=== PATIENT | female | born 1945 | race Caucasian/White ===

== ENCOUNTER → 2017-11-04 | Day surgery (SDC) | payer BC, OTHER ==
[2017-11-03 13:09] VITALS: BMI 28.0
[~2017-11-04] VITALS: Ht 157.5 cm; Wt 70.5 kg
[~2017-11-04] MED LIST: ATROPINE SULFATE 0.1 MG/ML 5ML SYR IV PRN; BELLADONNA/OPIUM SUPP 60 MG SUPP PR ONE; CALC600T9 PO; CEFAZOLIN 2000MG IV PUSH 10 ML IV SCH; CETI10TA84 PO; CHECK SCOPOLAMINE PATCH PLACEMENT SCH; DEXAMETHASONE SOD INJ 4 MG/ML VIAL ONE; DiphenhydrAMINE HCL 50 MG/ML VIAL ONE; EpHEDrine SULFATE 50MG/5ML SYR ONE; FENTANYL CITRATE INJ 50 MCG/1 ML 2 ML VIAL IV PRN; FENTANYL CITRATE INJ 50 MCG/1 ML 2 ML VIAL ONE; GLYCOPYRROLATE INJ 0.2 MG/ML VIAL ONE; HYDR-3419 PO; LABETALOL HCL IV 5 MG/ML 20ML IV PRN; LACTATED RINGER'S 1000ML 1,000 ML IV SCH; LIDOCAINE HCL 2% 2 ML VIAL (20MG/ML) ONE; MIDAZOLAM HCL 1 MG/ML 2ML VIAL ONE; NXM/40 PO; ONDANSETRON INJ 2 MG/ML 2 ML VIAL IV PRN; ONDANSETRON INJ 2 MG/ML 2 ML VIAL ONE; PATIENT'S HEIGHT AND/OR WEIGHT NEEDED SCH; PHEN-775 PO; PHENYLEPHRINE 100MCG/ML 5ML SYR ONE; PROPOFOL IV EMULSION 10 MG/ML 20 ML VIAL IV ONE; SCOPOLAMINE 1.5 MG TDSY TD ONE; SCOPOLAMINE 1.5 MG TDSY TD SCH; ZOLE5INJ INJ
[2017-11-04 05:46] VITALS: BP 181/77; PULSE 55; TEMP 36.5; O2SAT 98; Ht 157.5 cm; Wt 70.5 kg
--- NOTE | 2017-11-04 06:47 | History & Physical Bridge Note ---
H&P Re-Evaluation Bridge Note: I have examined the patient, reviewed the History & Physical and in the interval since the performance of the History & Physical I have noted the following changes of clinical significance: No changes noted
--- NOTE | 2017-11-04 08:03 | [facility] Operative Report ---
Operative Report Operative Date Nov 04, 2017. Pre-Operative Diagnosis Red Lesions in bladder, hematuria Post-Operative Diagnosis Red lesions in bladder, hematuria Procedure(s) Performed Cystoscopy, Bladder Biopsy Surgeon Dr. Colón Nurses Medical Assistants Phlebotomists Surgeon(s) none Estimated Blood Loss 0 cc Findings red lesions scattered throughout bladder Specimens A: Red lesions, bladder Drains none Anesthesia LMA Complication(s) None Disposition Recovery Room / PACU Indications workup of hematuria and irritative urinary symptoms showed suspicious red lesions in the bladder on office cysto. we plan biopsy for tissue diagnosis. Description of Procedure Patient was given general LMA anesthesia and placed in lithotomy position. Her genitals were prepped and draped in sterile fashion. Time out held with team. I placed a 22 fr rigid cystoscope to bladder. The urethra is unremarkable. The UOs are in normal location. There are about 10 red lesions in the bladder ranging in size from 3mm to 20mm in size. I used cold cups forceps to biopsy about 6 of them and fulgurated all of them. Hemostasis is excellent. After biopsy and fulguration there is an intense creeping red halo around each treatment site, much more pronounced than typical. I rinsed bladder several times. I left bladder empty and concluded case. I placed a belladonna and opium suppository for post-op pain. She transferred to recovery under my escort, in stable condition. Plan: Home today Pyridium for dysuria x 3 days consider atarax if this is a inflammatory allergic type reaction on path ASA 2 clean contaminated case ancef antibiotic operations support specialist I attest to the content of the Intraoperative Record and any orders documented therein. Any exceptions are noted below.
--- NOTE | 2017-11-04 08:08 | Discharge Instructions ---
Discharge Instructions Date of Service Nov 04, 2017. Admission Reason for Admission: Hematuria, red lesions in bladder Discharge Discharge Diagnosis / Problem: hematuria, red lesions bladder Discharge Goals Goal(s): Improve disease control, Learn about illness Activity Recommendations Activity Limitations: resume your previous activity Lifting Limitations: none Exercise/Sports Limitations: none, as tolerated May Resume Sexual Activity: when tolerated Shower/Bathe: no limitations Driving or Machine Use: resume 1 day after discharge will call with path report . Instructions / Follow-Up Instructions / Follow-Up will call with path report Current Hospital Diet Patient's current hospital diet: Discharge Diet Recommended Diet: Regular Diet Fluid Restriction: None Procedures Procedures Performed: Cystoscopy, Bladder Biopsy Pending Studies Studies pending at discharge: yes List of pending studies: bladder biopsy Medical Emergencies . Who to Call and When: Medical Emergencies: If at any time you feel your situation is an emergency, please call 911 immediately. . Non-Emergent Contact Non-Emergency issues call your: Urologist ([phone]) Call Non-Emergent contact if: temperature is above 100.5, your pain is not controlled . . "Provider Documentation" section prepared by Fara Colón. . VTE Core Measure Inpt VTE Proph given/why not?: SCD's
--- NOTE | 2017-11-04 09:58 | Anesthesiology Progress Note ---
Anesthesia Progress Note Date of Service Nov 04, 2017. Progress Notes On arrival to PACU, patient was found to be hypertensive and to have a pulse in the 110's and 120's and was in atrial fibrillation. One dose of labetalol improved both and a 12 lead ecg was done to confirm the rhythm. She has no known cardiac history. Spoke to Dr Rahman from cardiology and he will be by to see her. While explaining this to the patient she spontaneously converted to a sinus rhythm. Dr Rahman will still be by to see her - vitals have been stable and she feels fine.
--- NOTE | 2017-11-04 10:55 | Cardiology Consultation ---
Cardiology Consultation Date of Service Nov 04, 2017. Cardiology Consultation History: This is a 72-year-old female who underwent a cystoscopy today with bladder biopsy. At the end of the procedure she developed some atrial fibrillation and was given labetalol in the PACU. The patient soon after converted spontaneously to normal sinus rhythm. She is hemodynamically stable and was unaware of the atrial arrhythmia. She has no significant cardiac history. No prior history of arrhythmias. Reviewing her chart record, her only significant past history was that of breast cancer. She is currently under the effects of postanesthesia with voices no complaints. Allergies: Latex Reported Home Medications Medications Dose Route/Sig Max Daily Dose Days Date Category Dose Instructions Pyridium (Phenazopyridine Hcl) 200 Mg Tab 200 Mg PO TID PRN 11/04/17 Rx Reclast (Zoledronic Acid) 5 Mg/100 Ml Inj 1 Dose INJ Q1YR 11/03/17 Reported DUE 01/2018 Zyrtec (Cetirizine HCl) 10 Mg Tab 10 Mg PO PRN 11/03/17 Reported Calcium + D (Calcium Carbonate-Vitamin D) 1 Tab Tab 1 Tab PO BID 11/03/17 Reported Vicodin (5MG/300MG) (Hydrocodon/Acetaminophen 5MG/300MG) 1 Tab Tab 1 Tab PO Q6H PRN 11/03/17 Reported Nexium (Esomeprazole Magnesium) 40 Mg Capcr 40 Mg PO QAM 11/10/07 Reported Past medical history: The patient has no prior history of heart disease. As stated above she has been treated for breast cancer. Social history: She is reformed cigarette smoker. She is and lives with her . Family medical history: Noncontributory General: The patient denies weight change, night sweats, fever, chills. Head: The patient denies headache and prior head trauma. Cardiovascular: The patient denies chest pain or chest discomfort, dyspnea on exertion, palpitations, PND, orthopnea, edema, spontaneous shortness of breath, syncope and near syncope. Pulmonary: The patient denies cough, wheeze, pleurisy, hemoptysis, sputum, and excessive snoring. Gastrointestinal: The patient denies nausea, vomiting, diarrhea, constipation, bloating, hematemesis, hematochezia, and abdominal pain. Skin: The patient denies diaphoresis and rash. Musculoskeletal: The patient denies joint pain, joint swelling, myalgia, back pain, neck pain and prior injuries. Neurological: The patient denies prior stroke and seizures Vital Signs Past 12 Hours Date Time Temp Pulse Resp B/P (MAP) Pulse Ox O2 Delivery O2 Flow Rate FiO2 11/04/17 10:15 86 14 148/81 95 Room Air 11/04/17 10:00 85 15 158/87 95 Room Air 11/04/17 09:45 36.1 95 18 147/99 94 Room Air 11/04/17 09:30 87 18 163/91 93 Room Air 11/04/17 09:20 87 18 161/98 92 Room Air 11/04/17 09:10 89 16 163/99 95 Room Air 11/04/17 09:00 88 15 156/95 95 Room Air 11/04/17 08:50 105 14 135/102 96 Room Air 11/04/17 08:40 94 12 132/92 97 Room Air 11/04/17 08:30 86 12 146/81 100 Oxymask 2 11/04/17 08:20 82 12 143/71 100 Oxymask 10 11/04/17 08:10 131 13 122/99 100 Oxymask 10 11/04/17 08:02 36.0 125 17 132/99 100 Oxymask 10 11/04/17 05:46 36.5 55 16 181/77 (111) 98 Room Air General Appearance: Alert and Oriented x3. NAD. Head: Normocephalic Atraumatic. Eyes: PERRLA, EOMI, conjunctiva and sclera clear Neck: Supple. No carotid bruits noted. No JVD. No HJD. Respiratory: Breath sounds clear to auscultation bilaterally. No w/r/r. Cardiovascular: Reg rate and rhythm. S1 and S2 noted. No murmurs, rubs, gallops. PMI non displace. Abdomen: Normal bowel sounds, soft nontender. no abdominal bruits. Extremities: No edema, no clubbing or cyanosis. distal pulses 2/4 bilaterally. Neuro: No focal deficits. Psychiatric: Normal affect. Impression: 1. Paroxysmal atrial fibrillation most likely catecholamine-induced 2. Status post cystoscopy with bladder biopsy 3. History of breast cancer Recommendations: I believe the patient may be discharged home to outpatient follow-up with her primary care physician. I will order an outpatient Holter monitor through our office and our office will contact the patient. We will review that study was completed. If the patient is having additional asymptomatic atrial fibrillation then we will follow-up otherwise she can follow -up with her primary care physician.
[2017-11-04 11:05] VITALS: BP 131/66; PULSE 79; TEMP 36.6; O2SAT 96
--- NOTE | 2017-11-04 11:15 | Anesthesiology Progress Note ---
Anesthesia Post Op Note Date & Time Nov 04, 2017 at 11:15 Vital Signs Pain Intensity: 0 Vital Signs Past 12 Hours Date Time Temp Pulse Resp B/P (MAP) Pulse Ox O2 Delivery O2 Flow Rate FiO2 11/04/17 10:45 88 20 161/88 93 Room Air 11/04/17 10:30 88 17 143/97 93 Room Air 11/04/17 10:15 86 14 148/81 95 Room Air 11/04/17 10:00 85 15 158/87 95 Room Air 11/04/17 09:45 36.1 95 18 147/99 94 Room Air 11/04/17 09:30 87 18 163/91 93 Room Air 11/04/17 09:20 87 18 161/98 92 Room Air 11/04/17 09:10 89 16 163/99 95 Room Air 11/04/17 09:00 88 15 156/95 95 Room Air 11/04/17 08:50 105 14 135/102 96 Room Air 11/04/17 08:40 94 12 132/92 97 Room Air 11/04/17 08:30 86 12 146/81 100 Oxymask 2 11/04/17 08:20 82 12 143/71 100 Oxymask 10 11/04/17 08:10 131 13 122/99 100 Oxymask 10 11/04/17 08:02 36.0 125 17 132/99 100 Oxymask 10 11/04/17 05:46 36.5 55 16 181/77 (111) 98 Room Air Notes Mental Status: alert / awake / arousable, participated in evaluation Pt Amnestic to Procedure: Yes Nausea / Vomiting: adequately controlled Pain: adequately controlled Airway Patency, RR, SpO2: stable & adequate BP & HR: stable & adequate Hydration State: stable & adequate Anesthetic Complications: no major complications apparent
[2017-11-04 11:35] VITALS: BP 126/57; PULSE 81; TEMP 36.6; O2SAT 96
== END | disposition home or self-care (01) ==
LOC: C.ACU 05:20
PROVIDERS: ATTEND Urology
DX: N30.81 Other cystitis with hematuria (principal); I48.0 Paroxysmal atrial fibrillation; K21.0 Gastro-esophageal reflux disease with esophagitis; M81.0 Age-related osteoporosis without current pathological fracture; E78.5 Hyperlipidemia, unspecified; Z85.3 Personal history of malignant neoplasm of breast

== ENCOUNTER → 2018-05-27 | Outpatient (CLI) | payer OTHER ==
[~2018-05-27] MED LIST changes: -ATROPINE SULFATE 0.1 MG/ML 5ML SYR IV PRN; -BELLADONNA/OPIUM SUPP 60 MG SUPP PR ONE; -CEFAZOLIN 2000MG IV PUSH 10 ML IV SCH; -CHECK SCOPOLAMINE PATCH PLACEMENT SCH; -DEXAMETHASONE SOD INJ 4 MG/ML VIAL ONE; -DiphenhydrAMINE HCL 50 MG/ML VIAL ONE; -EpHEDrine SULFATE 50MG/5ML SYR ONE; -FENTANYL CITRATE INJ 50 MCG/1 ML 2 ML VIAL IV PRN; -FENTANYL CITRATE INJ 50 MCG/1 ML 2 ML VIAL ONE; -GLYCOPYRROLATE INJ 0.2 MG/ML VIAL ONE; -LABETALOL HCL IV 5 MG/ML 20ML IV PRN; -LACTATED RINGER'S 1000ML 1,000 ML IV SCH; -LIDOCAINE HCL 2% 2 ML VIAL (20MG/ML) ONE; -MIDAZOLAM HCL 1 MG/ML 2ML VIAL ONE; -ONDANSETRON INJ 2 MG/ML 2 ML VIAL IV PRN; -ONDANSETRON INJ 2 MG/ML 2 ML VIAL ONE; -PATIENT'S HEIGHT AND/OR WEIGHT NEEDED SCH; -PHEN-775 PO; -PHENYLEPHRINE 100MCG/ML 5ML SYR ONE; -PROPOFOL IV EMULSION 10 MG/ML 20 ML VIAL IV ONE; -SCOPOLAMINE 1.5 MG TDSY TD ONE; -SCOPOLAMINE 1.5 MG TDSY TD SCH
--- NOTE | 2018-05-28 05:53 | PAP/PSG TECHNICIAN REPORT ---
[facility] [employer] Project Manager Polysomnogram Report Study name: None Report date: 05/28/2018 Study date: 05/27/2018 Referring Physician: DR. BRODY Name: URIEL MINOR Interpreting Physician: Shashank Rodriguez M.D. Date of : 1945 Data Center Project Manager: Gino Vale RPSGT. Sex: Female Age: 73 StudyType: PSG Weight: 154 lbs Height: 73 years, Height 5' 1.5" BMI: 28.62 Medications: CETIRIZINE 10 MG, VICODIN 5 MG, NEXIUM 20 MG, CALCIUM Patient History PATIENT HAS HISTORY OF SNORING, DAYTIME FATIGUE AND LACK OF ENERGY. SHE IS HERE TODAY FOR AN EVALUATION FOR SWETHA. RM 6 Parameters Monitored NPSG: E1-M2, E2-M1, Fp1-M2, Fp2-M1, F3-M2, F4-M2, F4-M1, C3-M2, C4-M2, C4-M1, O1-M2, O2-M2, O2-M1, T3-M2, T4-M1, P3-M2, P4-M1, CHIN1, CHIN2, HR, EKG, Legs, PFLOW, SNOR, FLOW, CFLOW, Tidal Volume, THOR, ABDO, SpO2, PLTH, CPRESS, ETCO2 Wave, ETCO2, pH Sleep Architecture Sleep Stages Time at Lights Off 10:23:38 PM STAGES Time (min.) TST (%) Time at Lights On 5:29:08 AM Wake 157.0 -- Total Recording Time (TRT) 426.00 min. N1 20.5 8 Total Sleep Period (TSP) 414.0 min. N2 124.0 46 Total Sleep Time (TST) 268.5min. N3 95.5 36 Awake Time 157.5 min. REM 28.5 11 Wake after Sleep Onset 150.0 min. Sleep Efficiency (SE) 63 % Sleep Onset Latency (JOE) 7.0 min. Number of Stage 1 Shifts None Awakenings 41 Stage Changes 115 Number of REM periods 2 REM 28.5 11 REM Latency 100.0 min. NREM 240.0 89 Body Position Analysis Supine Right Left Side Prone Vertical Total Sleep Time (min.) 65.8 78.6 125.9 204.50 0.0 0.0 Total Sleep Time (%) 24% 29% 47% 76 0% N/A% Total Sleep Time REM (min.) 0.0 10.5 18.0 None 0.0 0.0 Total Sleep Time NREM (min.) 64.0 68.1 107.9 None 0.0 0.0 Intermittent Wake (min.) 1.8 52.7 102.5 None 0.0 0.0 Total Sleep Period (%) 16% None None None None None Arousals Myoclonus (PLM) * Events Count Index Events Count Index Spontaneous 76 17 Events Awake (PLMW) 308 117.7 Respiratory 13 2.9 Events Asleep w/ Arousal (PLMA) 42 9.4 PLM 42 9 Events Asleep w/o Arousal (PLMS) 178 39.8 Snoring 10 2 Total Asleep 220 49.2 Total 141 32 Total 528 74 Respiratory Analysis * CA OA MA CH H RERA Total Count 10 0 0 0 21 3 31 Index 2.2 0.0 0.0 0 4.7 1 7.6 Mean Duration 14.5 0.0 0.0 0.00 24.8 13.3 20.7 Longest Duration 16.1 0.0 0.0 0.00 0.0 14.5 57.4 Respiratory Event Summary Total Supine ~Supine Right Left Prone REM NREM Apneas Count 10 0 10 3 7 N/A 0 10 Index 2.2 0 3 2.3 3.3 N/A 0 3 Hypopneas (4% Desat) Count 21 4 17 8 9 N/A 6 15 Index 4.7 3.8 5 6.1 4.3 N/A 12.6 3.8 Apneas & All Hypopneas Count 31 4 27 11 16 N/A 6 25 Index 6.9 4 8 8 8 N/A 12.6 6.3 Respiratory Events ([employer] Supervisor+All Hyp+RERA) Count 31 4 30 13 17 N/A 6 25 Index 7.6 4 9 9.9 8.1 N/A 12.6 7.0 Respiratory Related Arousal Count 13 4 12 8 4 N/A 0 13 Index 2.9 1 4 6 2 N/A 0 3 Snoring Analysis Supine Right Left Prone REM NREM Total Snore duration 19.9 min Snores count 147 383 533 N/A 155 908 1,063 Snore mean duration 1.1 Sec Snores index 138 292 254 N/A 326.3 227.0 237.5 TST with snoring (%) 7.4% Desaturation Event Summary: Minimum %SpO2 Event Count Mean/Min/Max Duration(sec.) Desaturation Index % Time In Bed > 90 62 27.5 / 4.5 / 58.8 10.1 89.9 86 - 90 1 6.0 / 6.0 / 6.0 1.5 10.0 81 - 85 0 N/A 0.0 0.0 76 - 80 0 N/A 0.0 0.0 71 - 75 0 N/A 0.0 0.0 66 - 70 0 N/A 0.0 0.0 61 - 65 0 N/A 0.0 0.0 56 - 60 0 N/A 0.0 0.0 51 - 55 0 N/A 0.0 0.0 < 50 0 N/A 0.0 0.0 Total REM NREM Awake <50% 0.0 min. 0.0 min. 0.0 min. 0.0 min. 51 - 60% 0.0 min. 0.0 min. 0.0 min. 0.0 min. 61 - 70% 0.0 min. 0.0 min. 0.0 min. 0.0 min. 71 - 80% 0.2 min. 0.0 min. 0.0 min. 0.2 min. 81 - 90% 41.1 min. 6.4 min. 32.7 min. 2.1 min. 91 - 100% 368.4 min. 22.1 min. 205.1 min. 141.2 min. Average 93 93 93 94 Minimum SpO2 72 88 88 72 Desaturation Event Index 8.9 10.5 7.3 11.8 # Desat. Events below 89% 5 1 1 3 Time(%) with Saturation below 89% 0.3 0.1 0.0 0.2 Time(min.) with Saturation below 89% 1.2 0.4 0.0 0.7 Time (mins) REM (mins) NREM (mins) % of TST SpO2 Below 90% 12 3 N9 4.0 SpO2 Below 88% 1 0 0 0 Heart Rate Analysis Min (bpm) Max (bpm) Average (bpm) Awake 39 127 56 NREM 42 127 51 REM 45 70 53 Overall 42 127 51 Supplemental O2 Values Minimum O2 level: None Value Start Time End Time Data Center Project Manager Comments Mrs. Minor slept in the right, left and supine positions. No cardiac arrhythmia noted. Leg movements noted. No bruxism noted. Snoring was noted and scored as a 3 on a scale of 1 through 5. (0=no snoring, 5=snoring loud enough to be heard through a closed door or down the iniguez way) Mrs. Minor awoke to use the restroom 1 time during the night. Mrs. Minor stated I did not sleep as well as I do when I am in my own bed. The final report will be interpreted and signed by a sleep physician. The completed physician report will then be placed in the patient medical record. Therapy (cm H2O) 0 TIB (min.) 425.5 TST (min.) 268.5 Sleep Onset (min.) 7.0 REM Onset From Sleep (min.) 100.0 Sleep Efficiency % 63 Wakefulness (%) 37 Wakefulness (min.) 157.5 NREM 1 (%) 8 NREM 1 (min.) 20.5 NREM 2 (%) 46 NREM 2 (min.) 124.0 NREM 3 (%) 36 NREM 3 (min.) 95.5 REM (%) 11 REM (min.) 28.5 # Arousals 141 Arousal Index 32 # Snore 1,063 Snore Index 237.5 AHI 6.9 AHI Supine 4 AHI Non-Supine 8 NREM AHI 6.3 REM AHI 12.6 RDI 7.6 # Obstructive Apnea 0 # Central Apnea 10 # Mixed Apnea 0 # Hypopneas 21 RERAs 3 Total Respiratory Events 35 Time Below SpO2 89% (min.) 0.5 Mean NREM SpO2 (%) 93 Mean REM SpO2 (%) 93 Mean Sleep SpO2 (%) 93 Min NREM SpO2 (%) 88 Min REM SpO2 (%) 88 Position Supine (min.) 65.8 Position Non-supine (min.) 204.5 LM Index Sleep 49.2 LM Index NREM 50.5 LM Index REM 37.9 Mean Heart Rate (bpm) 51 Min Heart Rate (bpm) 42
--- NOTE | 2018-05-31 15:46 | POLYSOMNOGRAPH REPORT ---
CLINICAL DATA: A 73-year-old female with BMI of 28.6 referred, by Dr. Brasher with snoring, fatigue, and lack of energy. SLEEP ARCHITECTURE: Total sleep period was 414 minutes. Total sleep time was 268.5 minutes divided between 240 minutes of non-REM sleep and 28.5 minutes of REM sleep. Sleep latency was 7 minutes. REM latency was 100 minutes. Sleep efficiency was 63%. Wake after sleep onset was elevated at 150 minutes. Sleep consisted of stage N1 8%, stage N2 46%, stage N3 36%, and REM 11%. AROUSAL DATA: 141 arousals were recorded for an index of 32 per hour. 42 were due to PLMs events. PERIODIC LIMB MOVEMENT DATA: Severe PLMD was noted. There were 220 limb movements during sleep noted for an index of 49.2 per hour with arousal index of 9.4 per hour. RESPIRATORY DATA: Mild sleep apnea was documented. The AHI was 6.9. The RDI was 7.6. There were 10 central apneic episodes. The longest apneic episode was 16 seconds. There were 21 hypopneic episodes with a mean duration of 24.8 seconds. There were 3 RERAs. The longest RERA was 14.5 seconds. OXIMETRY DATA: No hypoxemia was seen. Oxygen raya was 88% during REM. Mean saturation was 93%. EKG: Heart rates ranged from 42-127 beats per minute. No arrhythmias were noted. TECHNICAL SUPPORT DIRECTOR'S COMMENTS: The patient slept in the right, left, and supine position. Frequent leg movements were noted. Snoring was moderate, rated 3 on a scale of 1-5. The patient had frequent awakenings through the night. IMPRESSION: Mild sleep apnea/hypopnea with an AHI of 6.9 and an RDI of 7.6 with severe periodic limb movement disorder. RECOMMENDATIONS: The patient may benefit from a repeat sleep study with CPAP, use of auto CPAP, or use of an oral appliance. Treatment for PLMD may be of benefit if the patient has significant restless leg symptoms. Sleep medicine consultation may be of benefit. Clinical correlation is needed. JOSEFD
== END | disposition home or self-care (01) ==
LOC: C.NEUR 20:00
PROVIDERS: ATTEND Internal Medicine
DX: R53.83 Other fatigue (principal); G25.81 Restless legs syndrome